=== PATIENT | female | born 1975 | race Caucasian/White ===

== ENCOUNTER 2017-10-25 15:35 | Emergency (ER) | payer BC ==
--- NOTE | 2017-10-25 16:46 | RAD ---
Indication: Right shoulder pain. 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 There is no fracture or dislocation. No other bone or joint abnormality is identified. IMPRESSION: No fracture of the right shoulder is noted.
[2017-10-25 18:41] VITALS: BP 129/64
--- NOTE | 2017-10-26 17:23 | ED ---
Upper Extremity Pain - HPI Summary HPI Summary: Patient is a 42-year-old female presenting to the ED after a fall 1 hour [employer] with complaint of right shoulder pain. She states she fell on an outstretched arm and is having shoulder pain just anterior and superiorly. Full range of motion, however with discomfort. Most discomfort while patient has shoulder at 90 abduction. Denies any health concerns or other complaints. Denies any previous injury to the shoulder. Denies any injury or pain to the elbow wrist or hand. Pulses +2 intact bilaterally. Denies any color temperature changes. Endorses intermittent tingling to the upper arm just inferior to the shoulder joint. No obvious deformities. - History of Current Complaint Chief Complaint: EDShouldNina Stated Complaint: FALL/RT SHOULDER PAIN Time Seen by Provider: 10/25/17 17:57 Hx Obtained From: Patient Mechanism Of Injury: Blunt Trauma Onset/Duration: Started Hours Ago Timing: Constant Severity Initially: Moderate Severity Currently: Moderate Pain Location: Shoulder Character: Aching Aggravating Factor(s): Movement Alleviating Factor(s): Rest Associated Signs & Symptoms: Negative: Swelling, Redness, Bruising Related History: Dominant Hand Right - Risk Factors Non-Orthopedic Risk Factor: Negative PMH/Surg Hx/FS Hx/Imm Hx Previously Healthy: Yes - Immunization History Hx Pertussis Vaccination: No Immunizations Up to Date: Unable to Obtain/Confirm Infectious Disease History: No Infectious Disease History: Denies: Traveled Outside the [place] in Last 30 Days - Social History Occupation: Employed Full-time Lives: With Family Alcohol Use: None Hx Substance Use: No Substance Use Type: Reports: None Hx Tobacco Use: No Smoking Status (MU): Never Smoked Tobacco Review of Systems Constitutional: Negative Negative: Fever, Chills, Skin Diaphoresis Negative: Palpitations, Chest Pain Negative: Shortness Of Breath, Cough Genitourinary: Negative Positive: no symptoms reported, pain Positive: Arthralgia - R shoulder pain Skin: Negative Neurological: Negative All Other Systems Reviewed And Are Negative: Yes Physical Exam Triage Information Reviewed: Yes Vital Signs On Initial Exam: Initial Vitals Temp Pulse Resp BP Pulse Ox 98.5 F 77 16 140/84 100 10/25/17 15:43 10/25/17 15:43 10/25/17 15:43 10/25/17 15:43 10/25/17 15:43 Vital Signs Reviewed: Yes Appearance: Positive: Well-Appearing, Well-Nourished Skin: Positive: Warm Head/Face: Positive: Normal Head/Face Inspection Eyes: Positive: EOMI, BLADIMIR, Conjunctiva Clear Neck: Positive: Supple, No Lymphadenopathy Respiratory/Lung Sounds: Positive: Clear to Auscultation, Breath Sounds Present Cardiovascular: Positive: RRR, Pulses are Symmetrical in both Upper and Lower Extremities Musculoskeletal: Positive: Limited @ - past 90 degress abduction of the R shoulder - neer test and empty can test negative Neurological: Positive: Speech Normal Psychiatric: Positive: Normal, Affect/Mood Appropriate AVPU Assessment: Alert Diagnostics - Vital Signs Vital Signs Temp Pulse Resp BP Pulse Ox 10/25/17 18:37 98.1 F 80 18 129/64 100 10/25/17 15:43 98.5 F 77 16 140/84 100 - Laboratory Lab Statement: Any lab studies that have been ordered have been reviewed, and results considered in the medical decision making process. Course/Dx - Course Course Of Treatment: Patient's evaluated for right shoulder injury. She continues to be able to abduct and adduct shoulder both passively and actively. Neer test and empty can test both negative. No obvious deformity is noted. Most painful over the rotator cuff just superiorly on the shoulder. She is given a sling and will follow-up with orthopedics. X-rays obtained which showed no acute findings. She states she has an orthopedist in her hometown and does not need a referral at this time. I have encouraged ice and heat intermittently as well as ibuprofen. - Diagnoses Differential Diagnosis/HQI/PQRI: Positive: Contusion, Strain, Sprain Provider Diagnoses: Rotator cuff strain Discharge - Sign-Out/Discharge Documenting (check all that apply): Patient Departure - Discharge Plan Condition: Stable Disposition: HOME Patient Education Materials: Rotator Cuff Injury (ED) Referrals: Kelly Jackson DO [Primary Care Provider] - Additional Instructions: Please follow up with ortho next week if symptoms persist or worsen Ibuprofen 600mg three times daily x 3-5 days - do not exceed 5 days Moist heat and ice intermittently x 2 days - then only heat. - Billing Disposition and Condition Condition: STABLE Disposition: Home
== END 2017-10-25 18:37 | disposition home or self-care (01) ==
LOC: ED 15:35
DX: S46.011A Strain of muscle(s) and tendon(s) of the rotator cuff of right shoulder, initial encounter (principal); W19.XXXA Unspecified fall, initial encounter; Y92.9 Unspecified place or not applicable
CPT/HCPCS: 99281